=== PATIENT | male | born 1955 | race Hispanic/Latino ===

== ENCOUNTER → 2017-04-09 | Day surgery (SDC) | payer OTHER, MEDICARE ==
[~2017-04-09] MED LIST: FERROUS SULFAT325 MG PO; HYDROCHLOROTHIA25 MG PO; LIDOCAINE HCL 2% LOCAL INJ 5 ML SDV VIAL INJ ONE; MIDAZOLAM HCL 2 MG/2 ML VIAL ONE; PANTOPRAZOLE SO40 MG PO; PROPOFOL IV EMULSION 10 MG/ML 50 ML VIAL ONE; PROPRANOLOL HCL20 MG PO; TAMSULOSIN HCL0.4 MG PO; VITAMIN C500 MG PO
== END | disposition home or self-care (01) ==
LOC: OR 06:31
PROVIDERS: ATTEND Internal Medicine Gastroenterology
DX: K70.30 Alcoholic cirrhosis of liver without ascites (principal); I85.10 Secondary esophageal varices without bleeding; K31.7 Polyp of stomach and duodenum; K29.70 Gastritis, unspecified, without bleeding; K25.9 Gastric ulcer, unspecified as acute or chronic, without hemorrhage or perforation; E66.9 Obesity, unspecified; I10 Essential (primary) hypertension; Z68.35 Body mass index [BMI] 35.0-35.9, adult
CPT/HCPCS: 43251; 88305; 88312; 93005; J2001; J2250

== ENCOUNTER → 2017-05-28 | Outpatient (CLI) | payer OTHER, MEDICARE ==
[~2017-05-28] MED LIST changes: -LIDOCAINE HCL 2% LOCAL INJ 5 ML SDV VIAL INJ ONE; -MIDAZOLAM HCL 2 MG/2 ML VIAL ONE; -PROPOFOL IV EMULSION 10 MG/ML 50 ML VIAL ONE
[2017-05-28 09:33] LABS: BASOPHILS # (AUTO) 0.1 (0.0-0.1); BASOPHILS % 1.5 % (0.0-1.0); EOSINOPHILS # (AUTO) 0.2 (0.0-0.4); HEMATOCRIT 36.3 % (38.2-49.6); HEMOGLOBIN 12.4 g/dL (14.0-18.0); LYMPHOCYTES # (AUTO) 0.8 (1.0-3.2); LYMPHOCYTES % 13.4 % (18.0-39.1); MEAN CORPUSCULAR HGB CONC 34.2 g/dL (31-35); MEAN CORPUSCULAR VOLUME 102.5 fL (81-99); MONOCYTES # (AUTO) 1.2 (0.2-0.8); MONOCYTES % 19.9 % (4.4-11.3); NEUTROPHILS # (AUTO) 3.6 (2.1-6.9); NEUTROPHILS % 60.2 % (38.7-80.0); PLATELET COUNT 103 x10e3/uL (140-360); RED BLOOD COUNT 3.54 x10e6/uL (4.3-5.7)
[2017-05-28 09:43] LABS: INR 1.17
[2017-05-28 09:44] LABS: PARTIAL THROMBOPLASTIN TIME 37.4 seconds (23.8-35.5)
--- NOTE | 2017-05-28 09:52 | Diagnostic Imaging Report ---
PROCEDURE:ABDOMINAL ULTRASOUND COMPARISON:None. INDICATIONS:cirrhosis, varices FINDINGS: Liver: 15.6 cm in the right midclavicular line. Coarse hepatic echotexture with a nodular external contour in keeping with cirrhosis. Within the central liver there is a questionable hyperechoic lesion measuring 2.2 x 1.7 x 1.9 cm. Main portal vein: 1.3 cm in caliber. Hepatopetal flow. Gallbladder: Multiple small mobile shadowing calculi. No paracolic cystic fluid. The gallbladder wall is mildly thickened measuring 0.4 cm. Common Bile Duct: 0.2 cm in caliber. No echogenic filling defect. Sonographic Jones's sign: Reported as negative. Right kidney: 11.6 cm in length. Small (subcentimeter) echogenic focus in the medial aspect, without acoustic shadowing. Normal parenchymal echogenicity. Left kidney: 12.4 cm in length. No solid or cystic mass, echogenic calculi, or hydronephrosis. Normal parenchymal echogenicity. Spleen: Enlarged, measuring 16.7 cm in length. Uniform echotexture. Pancreas: The visualized portions of the pancreas are normal. Inferior vena cava: Patent. Aorta: Non-aneurysmal. Ascites: None. CONCLUSION: Cirrhosis with portal hypertension evidenced by splenomegaly. Echogenic lesion within the central aspect of the liver, along the main portal vein, is concerning for hepatocellular carcinoma in the setting of background cirrhosis. Further characterization with MRI of the abdomen with and without contrast (liver mass protocol) is suggested. Cholelithiasis with mild gallbladder wall thickening, likely attributable to underlying liver disease and/or hypoproteinemia in the absence of pericholecystic fluid or positive sonographic Jones's sign. Small shadowing echogenic focus in the right kidney may represent a small angiomyolipoma and may also be further assessed by above recommended multiphase MRI abdomen. Dictated by: Tim Burns M.D. on 05/28/2017 at 9:53 Electronically approved by: Tim Burns M.D. on 05/28/2017 at 9:53
[2017-05-28 09:53] LABS: ALANINE AMINOTRANSFERASE 72 IU/L (0-55); ALBUMIN/GLOBULIN RATIO 0.6 (0.8-2.0); ALKALINE PHOSPHATASE 133 IU/L (40-150); ANION GAP 9.9 mmol/L (8-16); BLOOD UREA NITROGEN 10 mg/dL (7-26); BUN/CREATININE RATIO 13 (6-25); CALCIUM 8.4 mg/dL (8.4-10.2); CARBON DIOXIDE 24 mmol/L (22-29); CHLORIDE 106 mmol/L (98-107); CREATININE, SERUM 0.75 mg/dL (0.72-1.25); EST GLOMERULAR FILTRATION RATE > 60 ML/MIN (60-); GLUCOSE 109 mg/dL (74-118); POTASSIUM 3.9 mmol/L (3.5-5.1); SODIUM 136 mmol/L (136-145)
== END ==
LOC: US 08:08
PROVIDERS: ATTEND Internal Medicine Gastroenterology
DX: I85.01 Esophageal varices with bleeding (principal); K70.30 Alcoholic cirrhosis of liver without ascites; E66.9 Obesity, unspecified; Z71.3 Dietary counseling and surveillance
CPT/HCPCS: 36415; 76700; 80053; 82105; 85025; 85610; 85730; 87340; 87522

== ENCOUNTER 2020-02-17 03:25 | Emergency (ER) | payer MEDICARE ==
[~2020-02-17] VITALS: Ht 157.5 cm; Wt 76.7 kg
[2020-02-17 03:52] LABS: BASOPHILS # (AUTO) 0.1 (0.0-0.1); BASOPHILS % 0.8 % (0.0-1.0); EOSINOPHILS # (AUTO) 0.1 (0.0-0.4); EOSINOPHILS % 0.9 % (0.0-6.0); HEMATOCRIT 22.1 % (38.2-49.6); HEMOGLOBIN 7.2 g/dL (14.0-18.0); LYMPHOCYTES # (AUTO) 0.8 (1.0-3.2); LYMPHOCYTES % 5.8 % (18.0-39.1); MEAN CORPUSCULAR HEMOGLOBIN 32.4 pg (28-32); MEAN CORPUSCULAR HGB CONC 32.6 g/dL (31-35); MEAN CORPUSCULAR VOLUME 99.5 fL (81-99); MONOCYTES # (AUTO) 1.1 (0.2-0.8); MONOCYTES % 8.1 % (4.4-11.3); NEUTROPHILS % 83.8 % (38.7-80.0); PLATELET COUNT 129 x10e3/uL (140-360); RED BLOOD COUNT 2.22 x10e6/uL (4.3-5.7); RED CELL DISTRIBUTION WIDTH 18.2 % (11.7-14.4)
[2020-02-17 03:54] LABS: CLARITY,URINE SL CLOUDY (CLEAR); COLOR,URINE YELLOW (YELLOW); KETONES,URINE NEGATIVE (NEGATIVE); LEUKOCYTE ESTERASE ,URINE NEGATIVE (NEGATIVE); NITRITE,URINE POSITIVE (NEGATIVE); PROTEIN,URINE DIPSTICK 1+ (NEGATIVE)
[2020-02-17 04:00] LABS: BACTERIA,URINE MODERATE /HPF; EPITHELIAL CELLS,URINE RARE /LPF
[2020-02-17 04:00] LABS: INR 1.5; PARTIAL THROMBOPLASTIN TIME 42.9 seconds (23.8-35.5); PROTHROMBIN TIME 18.8 seconds (11.9-14.5)
[2020-02-17] MEDS ORDERED: SODIUM CHLORIDE 0.9% 1000ML 1,000 ML IV STA (04:07)
[2020-02-17] MEDS ORDERED: IBUPROFEN 600 MG TAB PO STA (04:07)
[2020-02-17 04:09] LABS: ALANINE AMINOTRANSFERASE 63 IU/L (0-55); ALBUMIN/GLOBULIN RATIO 0.4 (0.8-2.0); ALKALINE PHOSPHATASE 208 IU/L (40-150); ANION GAP 12.4 mmol/L (8-16); BLOOD UREA NITROGEN 6 mg/dL (7-26); BUN/CREATININE RATIO 8 (6-25); CALCIUM 7.2 mg/dL (8.4-10.2); CARBON DIOXIDE 14 mmol/L (22-29); CHLORIDE 114 mmol/L (98-107); CREATINE KINASE 68 IU/L (30-200); CREATININE, SERUM 0.74 mg/dL (0.72-1.25); EST GLOMERULAR FILTRATION RATE > 60 ML/MIN (60-); GLUCOSE 116 mg/dL (74-118); POTASSIUM 3.4 mmol/L (3.5-5.1); SODIUM 137 mmol/L (136-145)
[2020-02-17] MEDS ORDERED: IBUPROFEN 600 MG TAB ONE (04:20)
[2020-02-17] MEDS ORDERED: CEFTRIAXONE SOD 1 GM/NS 50 ML 50 ML IV ONE (04:45)
[2020-02-17] MEDS ORDERED: BACTRIM DS TAB1 EACH PO (05:45)
== END 2020-02-17 06:49 | disposition home or self-care (01) ==
LOC: ER 03:42
DX: A41.9 Sepsis, unspecified organism (principal); N39.0 Urinary tract infection, site not specified; R50.9 Fever, unspecified; R53.81 Other malaise; I10 Essential (primary) hypertension; Z85.05 Personal history of malignant neoplasm of liver
CPT/HCPCS: 36415; 71045; 80053; 81001; 82550; 82553; 83605; 84484; 85025; 85610; 85730; 87040; 93005; 99284; J0696; J7030; U0002

== ENCOUNTER 2020-04-04 14:44 | Inpatient (IN) | payer MEDICARE ==
[~2020-04-04] VITALS: Ht 160 cm; Wt 83.6 kg
[~2020-04-04 14:44] MED LIST changes: +BACTRIM DS TAB1 EACH PO
[2020-04-04 16:18] LABS: BASOPHILS # (AUTO) 0.1 (0.0-0.1); EOSINOPHILS # (AUTO) 0.2 (0.0-0.4); EOSINOPHILS % 4.2 % (0.0-6.0); LYMPHOCYTES # (AUTO) 0.8 (1.0-3.2); LYMPHOCYTES % 15.3 % (18.0-39.1); MEAN CORPUSCULAR HEMOGLOBIN 33.2 pg (28-32); MEAN CORPUSCULAR HGB CONC 30.5 g/dL (31-35); MEAN CORPUSCULAR VOLUME 108.7 fL (81-99); MONOCYTES # (AUTO) 0.9 (0.2-0.8); MONOCYTES % 18.1 % (4.4-11.3); PLATELET COUNT 127 x10e3/uL (140-360); RED BLOOD COUNT 1.84 x10e6/uL (4.3-5.7); RED CELL DISTRIBUTION WIDTH 16.4 % (11.7-14.4)
[2020-04-04 16:29] LABS: HEMOGLOBIN 6.1 g/dL (14.0-18.0); INR 1.61; PROTHROMBIN TIME 20.3 seconds (11.9-14.5)
[2020-04-04] MEDS ORDERED: SODIUM CHLORIDE 0.9% 250ML 250 ML IV ONE (16:30)
[2020-04-04 16:34] LABS: ANION GAP 10.2 mmol/L (8-16); BLOOD UREA NITROGEN 8 mg/dL (7-26); BUN/CREATININE RATIO 11 (6-25); CALCIUM 7.5 mg/dL (8.4-10.2); CARBON DIOXIDE 18 mmol/L (22-29); CHLORIDE 113 mmol/L (98-107); CREATININE, SERUM 0.74 mg/dL (0.72-1.25); EST GLOMERULAR FILTRATION RATE > 60 ML/MIN (60-); GLUCOSE 114 mg/dL (74-118); POTASSIUM 3.2 mmol/L (3.5-5.1); SODIUM 138 mmol/L (136-145)
[2020-04-04] MEDS ORDERED: ACETAMINOPHEN 325 MG TAB PO PRN (19:00)
[2020-04-04] MEDS ORDERED: HYDRALAZINE HCL 20 MG/ML VIAL IV PRN (19:00)
[2020-04-04] MEDS ORDERED: POTASSIUM CHLORIDE 20MEQ/100ML 200 ML IV ONE (19:00)
[2020-04-04] MEDS ORDERED: ACETAMINOPHEN/CODEINE 300MG - 30MG TAB PO PRN (19:00)
[2020-04-04] MEDS ORDERED: FUROSEMIDE INJ 10 MG/ML 4 ML VIAL IV SCH (19:00)
[2020-04-04] MEDS ORDERED: ONDANSETRON HCL INJ 2MG/ML 2ML 2 MG/ML VIAL IV PRN (19:00)
[2020-04-04 19:45] VITALS: BP 152/80
[2020-04-04 20:10] VITALS: BP 152/80
[2020-04-04] MEDS ORDERED: OCTREOTIDE ACETATE 0.05 MG/ML AMP IV SCH (21:15)
[2020-04-04] MEDS ORDERED: SODIUM CHLORIDE 0.9% SQ SCH (21:15)
[2020-04-04] MEDS ORDERED: OCTREOTIDE ACETATE SQ SCH (21:15)
[2020-04-04] MEDS ORDERED: OCTREOTIDE ACETATE 500 MCG in SODIUM CHLORIDE 0.9% 250ML 250 ML IV SCH (22:30)
[2020-04-05] VITALS (8 sets, daily range): BP systolic 117–144; BP diastolic 65–83
[2020-04-05] MEDS ORDERED: SODIUM CHLORIDE 0.9% 250ML 250 ML ONE (00:56)
[2020-04-05] MEDS ORDERED: MULTIVITAMINS- 12 INJECTION 10 ML, FOLIC ACID MDV 5 MG, THIAMINE HCL INJ 100 MG in SODI... IV SCH (01:00)
[2020-04-05 01:23] LABS: ALBUMIN 1.8 g/dL (3.5-5.0); BILIRUBIN,DIRECT 3.6 mg/dL (0.0-0.5)
[2020-04-05] MEDS ORDERED: PHYTONADIONE 10 MG/ML AMP IV ONE ×2 (02:00→08:45)
[2020-04-05] MEDS ORDERED: ALIGN4 MG PO (03:57)
[2020-04-05] MEDS ORDERED: SODIUM CHLORIDE 0.9% 1000ML 1,000 ML ONE (06:58)
[2020-04-05] MEDS: POTASSIUM CHLORIDE 20MEQ/100ML 100 ML IV SCH ×2 (07:42→10:30)
[2020-04-05] MEDS ORDERED: OCTREOTIDE ACETATE 0.05 MG/ML AMP IV SCH (08:00)
[2020-04-05] MEDS: TAMSULOSIN HCL 0.4 MG CAP PO SCH (08:11)
[2020-04-05] MEDS: FERROUS SULFATE 325 MG TAB PO SCH (08:11)
[2020-04-05] MEDS: PANTOPRAZOLE SOD 40 MG TABEC PO SCH (08:11)
[2020-04-05] MEDS: PROPRANOLOL HCL 40 MG TAB PO SCH (08:11)
[2020-04-05] MEDS: SPIRONOLACTONE 25 MG TAB PO SCH ×2 (08:11→17:31)
[2020-04-05] MEDS: ASCORBIC ACID 500 MG TAB PO SCH ×2 (08:12→17:31)
[2020-04-05] MEDS ORDERED: FUROSEMIDE INJ 10 MG/ML 4 ML VIAL IV SCH ×2 (09:00)
[2020-04-05] MEDS ORDERED: PHYTONADIONE 10MG/ML 20 MG in SODIUM CHLORIDE 0.9% 50ML 50 ML IV ONE (09:10)
[2020-04-05] MEDS ORDERED: POTASSIUM CHLORIDE 20MEQ/100ML 100 ML IV ONE (10:30)
[2020-04-05] MEDS: OCTREOTIDE ACETATE 500 MCG in SODIUM CHLORIDE 0.9% 250ML 250 ML IV SCH ×3 (11:16→18:00)
[2020-04-05] MEDS: MULTIVITAMINS- 12 INJECTION 10 ML, FOLIC ACID MDV 5 MG, THIAMINE HCL INJ 100 MG in SODI... IV SCH (11:16)
[2020-04-05 13:07] LABS: BASOPHILS # (AUTO) 0.1 (0.0-0.1); BASOPHILS % 2.2 % (0.0-1.0); EOSINOPHILS # (AUTO) 0.2 (0.0-0.4); EOSINOPHILS % 4.3 % (0.0-6.0); HEMATOCRIT 30.7 % (38.2-49.6); HEMOGLOBIN 9.8 g/dL (14.0-18.0); LYMPHOCYTES # (AUTO) 0.7 (1.0-3.2); MEAN CORPUSCULAR HEMOGLOBIN 31.9 pg (28-32); MEAN CORPUSCULAR HGB CONC 31.9 g/dL (31-35); MONOCYTES # (AUTO) 0.8 (0.2-0.8); MONOCYTES % 16.3 % (4.4-11.3); NEUTROPHILS # (AUTO) 2.8 (2.1-6.9); NEUTROPHILS % 61.5 % (38.7-80.0); PLATELET COUNT 135 x10e3/uL (140-360); RED BLOOD COUNT 3.07 x10e6/uL (4.3-5.7); RED CELL DISTRIBUTION WIDTH 19.9 % (11.7-14.4)
[2020-04-05 13:29] LABS: ALANINE AMINOTRANSFERASE 46 IU/L (0-55); ALBUMIN 1.9 g/dL (3.5-5.0); ALBUMIN/GLOBULIN RATIO 0.3 (0.8-2.0); ALKALINE PHOSPHATASE 194 IU/L (40-150); ANION GAP 12.5 mmol/L (8-16); BLOOD UREA NITROGEN 8 mg/dL (7-26); BUN/CREATININE RATIO 12 (6-25); CALCIUM 7.8 mg/dL (8.4-10.2); CARBON DIOXIDE 18 mmol/L (22-29); CHLORIDE 111 mmol/L (98-107); CREATININE, SERUM 0.67 mg/dL (0.72-1.25); EST GLOMERULAR FILTRATION RATE > 60 ML/MIN (60-); GLUCOSE 127 mg/dL (74-118); POTASSIUM 3.5 mmol/L (3.5-5.1); SODIUM 138 mmol/L (136-145)
[2020-04-05 15:20] LABS: BODY FLUID APPEARANCE SL.CLOUDY; BODY FLUID COLOR YELLOW; BODY FLUID TYPE PERITONEAL
[2020-04-05 15:21] LABS: RBC,BODY FLUID 269 cells/uL; WBC,BODY FLUID 146 cells/uL
[2020-04-05 15:28] LABS: LYMPHOCYTES,BODY FLUID 49 %; MONO/MACROPHG,BODY FLUID 16 %; NEUTROPHILS,BODY FLUID 20 %; OTHER CELLS,BODY FLUID 15 %
[2020-04-05] MEDS: FUROSEMIDE INJ 10 MG/ML 4 ML VIAL IV SCH (17:31)
[2020-04-06] VITALS (8 sets, daily range): BP systolic 108–119; BP diastolic 60–72
[2020-04-06] MEDS: OCTREOTIDE ACETATE 500 MCG in SODIUM CHLORIDE 0.9% 250ML 250 ML IV SCH ×3 (04:00→21:08)
[2020-04-06] MEDS: MULTIVITAMINS- 12 INJECTION 10 ML, FOLIC ACID MDV 5 MG, THIAMINE HCL INJ 100 MG in SODI... IV SCH ×2 (04:15→20:34)
[2020-04-06 05:53] LABS: BASOPHILS # (AUTO) 0.1 (0.0-0.1); BASOPHILS % 2.4 % (0.0-1.0); EOSINOPHILS # (AUTO) 0.2 (0.0-0.4); HEMATOCRIT 25.7 % (38.2-49.6); HEMOGLOBIN 8.4 g/dL (14.0-18.0); LYMPHOCYTES # (AUTO) 0.9 (1.0-3.2); LYMPHOCYTES % 23.9 % (18.0-39.1); MEAN CORPUSCULAR HEMOGLOBIN 32.3 pg (28-32); MEAN CORPUSCULAR HGB CONC 32.7 g/dL (31-35); MEAN CORPUSCULAR VOLUME 98.8 fL (81-99); MONOCYTES # (AUTO) 0.6 (0.2-0.8); MONOCYTES % 15.2 % (4.4-11.3); NEUTROPHILS # (AUTO) 1.9 (2.1-6.9); PLATELET COUNT 104 x10e3/uL (140-360); RED CELL DISTRIBUTION WIDTH 19.2 % (11.7-14.4)
[2020-04-06 06:10] LABS: INR 1.8; PROTHROMBIN TIME 22.3 seconds (11.9-14.5)
[2020-04-06 06:11] LABS: PARTIAL THROMBOPLASTIN TIME 44.4 seconds (23.8-35.5)
[2020-04-06 06:21] LABS: ALANINE AMINOTRANSFERASE 40 IU/L (0-55); ALBUMIN 1.5 g/dL (3.5-5.0); ALBUMIN/GLOBULIN RATIO 0.3 (0.8-2.0); ALKALINE PHOSPHATASE 159 IU/L (40-150); BLOOD UREA NITROGEN 7 mg/dL (7-26); BUN/CREATININE RATIO 11 (6-25); CALCIUM 7.2 mg/dL (8.4-10.2); CARBON DIOXIDE 20 mmol/L (22-29); CHLORIDE 110 mmol/L (98-107); CREATININE, SERUM 0.63 mg/dL (0.72-1.25); EST GLOMERULAR FILTRATION RATE > 60 ML/MIN (60-); GLUCOSE 124 mg/dL (74-118); SODIUM 138 mmol/L (136-145)
[2020-04-06 06:39] LABS: % IRON SATURATION 71 % (15-50); IRON 125 ug/dL (65-175); TOTAL IRON BINDING CAPACITY 176 ug/dL (261-478); TRANSFERRIN 126 mg/dL (174-364)
[2020-04-06] MEDS: PANTOPRAZOLE SOD 40 MG TABEC PO SCH (07:30)
[2020-04-06] MEDS: SPIRONOLACTONE 25 MG TAB PO SCH ×2 (09:00→16:30)
[2020-04-06] MEDS: PROPRANOLOL HCL 40 MG TAB PO SCH (09:00)
[2020-04-06] MEDS: TAMSULOSIN HCL 0.4 MG CAP PO SCH (09:00)
[2020-04-06] MEDS: FERROUS SULFATE 325 MG TAB PO SCH (09:00)
[2020-04-06] MEDS: FUROSEMIDE INJ 10 MG/ML 4 ML VIAL IV SCH ×2 (09:00→16:23)
[2020-04-06] MEDS: ASCORBIC ACID 500 MG TAB PO SCH ×2 (09:00→16:30)
[2020-04-06] MEDS ORDERED: POTASSIUM CHLORIDE 20MEQ/100ML 300 ML IV ONE (12:15)
[2020-04-06] MEDS ORDERED: SODIUM CHLORIDE 0.9% 250ML 250 ML ONE (13:10)
[2020-04-06 13:44] LABS: CLARITY,URINE HAZY (CLEAR); COLOR,URINE YELLOW (YELLOW); KETONES,URINE NEGATIVE (NEGATIVE); LEUKOCYTE ESTERASE ,URINE NEGATIVE (NEGATIVE); NITRITE,URINE NEGATIVE (NEGATIVE); PROTEIN,URINE DIPSTICK 2+ (NEGATIVE); URINE UROBILINOGEN 4 mg/dL (0.2 - 1)
[2020-04-06 13:53] LABS: BACTERIA,URINE MANY /HPF; CALCIUM OXALATE CRYSTALS,UR RARE (FEW); EPITHELIAL CELLS,URINE FEW /LPF; RBC,URINE >50 /HPF (0-5); WBC,URINE (MAN) 0-5 /HPF (0-5)
[2020-04-06] MEDS: POTASSIUM CHLORIDE 10MEQ EA PO SCH (16:30)
[2020-04-06] MEDS ORDERED: SODIUM CHLORIDE 0.9% 500ML 500 ML ONE (16:35)
[2020-04-07] VITALS (8 sets, daily range): BP systolic 95–110; BP diastolic 56–65
[2020-04-07 06:39] LABS: BASOPHILS # (AUTO) 0.1 (0.0-0.1); BASOPHILS % 2.8 % (0.0-1.0); EOSINOPHILS # (AUTO) 0.3 (0.0-0.4); EOSINOPHILS % 5.9 % (0.0-6.0); HEMATOCRIT 26.8 % (38.2-49.6); HEMOGLOBIN 8.6 g/dL (14.0-18.0); LYMPHOCYTES % 21.5 % (18.0-39.1); MEAN CORPUSCULAR HGB CONC 32.1 g/dL (31-35); MEAN CORPUSCULAR VOLUME 99.6 fL (81-99); MONOCYTES # (AUTO) 0.6 (0.2-0.8); MONOCYTES % 12.2 % (4.4-11.3); NEUTROPHILS # (AUTO) 2.6 (2.1-6.9); NEUTROPHILS % 56.9 % (38.7-80.0); PLATELET COUNT 144 x10e3/uL (140-360); RED BLOOD COUNT 2.69 x10e6/uL (4.3-5.7); RED CELL DISTRIBUTION WIDTH 18.6 % (11.7-14.4)
[2020-04-07 07:00] LABS: CHOL/HDL RATIO 2.9 (3.9-4.7); MAGNESIUM 1.2 MG/DL (1.3-2.1); PHOSPHORUS 2.5 MG/DL (2.3-4.7)
[2020-04-07 07:13] LABS: ANION GAP 10.5 mmol/L (8-16); BLOOD UREA NITROGEN 8 mg/dL (7-26); BUN/CREATININE RATIO 12 (6-25); CALCIUM 7.1 mg/dL (8.4-10.2); CARBON DIOXIDE 21 mmol/L (22-29); CHLORIDE 109 mmol/L (98-107); CREATININE, SERUM 0.69 mg/dL (0.72-1.25); EST GLOMERULAR FILTRATION RATE > 60 ML/MIN (60-); GLUCOSE 89 mg/dL (74-118); POTASSIUM 3.5 mmol/L (3.5-5.1); SODIUM 137 mmol/L (136-145)
[2020-04-07 07:33] LABS: THYROID STIMULATING HORMONE 0.235 uIU/mL (0.350-4.940)
[2020-04-07] MEDS ORDERED: SODIUM CHLORIDE 0.9% 250ML 0 ML ONE (08:28)
[2020-04-07] MEDS: PANTOPRAZOLE SOD 40 MG TABEC PO SCH (08:46)
[2020-04-07] MEDS: FUROSEMIDE INJ 10 MG/ML 4 ML VIAL IV SCH ×2 (08:46→17:09)
[2020-04-07] MEDS: SPIRONOLACTONE 25 MG TAB PO SCH ×2 (08:47→17:09)
[2020-04-07] MEDS: PROPRANOLOL HCL 40 MG TAB PO SCH (08:47)
[2020-04-07] MEDS: TAMSULOSIN HCL 0.4 MG CAP PO SCH (08:47)
[2020-04-07] MEDS: FERROUS SULFATE 325 MG TAB PO SCH (08:47)
[2020-04-07] MEDS: ASCORBIC ACID 500 MG TAB PO SCH ×2 (08:48→17:09)
[2020-04-07 09:20] LABS: FERRITIN 99.91 ng/mL (21.81-274.66)
[2020-04-07] MEDS: POTASSIUM CHLORIDE 10MEQ EA PO SCH (09:36)
[2020-04-07] MEDS ORDERED: MAGNESIUM SULFATE 2GM/50ML 50 ML IV ONE ×5 (10:30→15:00)
[2020-04-07] MEDS: IRON SUCROSE 100 MG in SODIUM CHLORIDE 0.9% 100 ML 100 ML IV SCH (10:38)
[2020-04-07] MEDS: OCTREOTIDE ACETATE 500 MCG in SODIUM CHLORIDE 0.9% 250ML 250 ML IV SCH ×2 (11:48→20:00)
[2020-04-08] VITALS (7 sets, daily range): BP systolic 103–149; BP diastolic 55–81
[2020-04-08] MEDS: MULTIVITAMINS- 12 INJECTION 10 ML, FOLIC ACID MDV 5 MG, THIAMINE HCL INJ 100 MG in SODI... IV SCH ×2 (01:45→16:55)
[2020-04-08] MEDS: OCTREOTIDE ACETATE 500 MCG in SODIUM CHLORIDE 0.9% 250ML 250 ML IV SCH ×2 (06:00→13:24)
[2020-04-08 06:28] LABS: BASOPHILS # (AUTO) 0.2 (0.0-0.1); BASOPHILS % 3.1 % (0.0-1.0); EOSINOPHILS # (AUTO) 0.3 (0.0-0.4); EOSINOPHILS % 5.3 % (0.0-6.0); HEMATOCRIT 26.2 % (38.2-49.6); HEMOGLOBIN 8.4 g/dL (14.0-18.0); LYMPHOCYTES # (AUTO) 1.2 (1.0-3.2); LYMPHOCYTES % 23.3 % (18.0-39.1); MEAN CORPUSCULAR HEMOGLOBIN 31.5 pg (28-32); MEAN CORPUSCULAR HGB CONC 32.1 g/dL (31-35); MEAN CORPUSCULAR VOLUME 98.1 fL (81-99); MONOCYTES # (AUTO) 0.7 (0.2-0.8); MONOCYTES % 12.6 % (4.4-11.3); NEUTROPHILS # (AUTO) 2.9 (2.1-6.9); NEUTROPHILS % 55.3 % (38.7-80.0); PLATELET COUNT 144 x10e3/uL (140-360); RED BLOOD COUNT 2.67 x10e6/uL (4.3-5.7); RED CELL DISTRIBUTION WIDTH 18.3 % (11.7-14.4)
[2020-04-08 07:03] LABS: ALANINE AMINOTRANSFERASE 39 IU/L (0-55); ALBUMIN 1.6 g/dL (3.5-5.0); ALBUMIN/GLOBULIN RATIO 0.3 (0.8-2.0); ALKALINE PHOSPHATASE 168 IU/L (40-150); ANION GAP 8.5 mmol/L (8-16); CALCIUM 7.1 mg/dL (8.4-10.2); CARBON DIOXIDE 24 mmol/L (22-29); CHLORIDE 110 mmol/L (98-107); MAGNESIUM 1.7 MG/DL (1.3-2.1); POTASSIUM 3.5 mmol/L (3.5-5.1); SODIUM 139 mmol/L (136-145)
[2020-04-08 07:39] LABS: BLOOD UREA NITROGEN 7 mg/dL (7-26); BUN/CREATININE RATIO 10 (6-25); CREATININE, SERUM 0.69 mg/dL (0.72-1.25); EST GLOMERULAR FILTRATION RATE > 60 ML/MIN (60-); GLUCOSE 102 mg/dL (74-118)
[2020-04-08] MEDS: TAMSULOSIN HCL 0.4 MG CAP PO SCH (08:28)
[2020-04-08] MEDS: FERROUS SULFATE 325 MG TAB PO SCH (08:28)
[2020-04-08] MEDS: SPIRONOLACTONE 25 MG TAB PO SCH ×2 (08:28→16:41)
[2020-04-08] MEDS: FUROSEMIDE INJ 10 MG/ML 4 ML VIAL IV SCH ×2 (08:28→16:41)
[2020-04-08] MEDS: PANTOPRAZOLE SOD 40 MG TABEC PO SCH (08:28)
[2020-04-08] MEDS: PROPRANOLOL HCL 40 MG TAB PO SCH (08:29)
[2020-04-08] MEDS: POTASSIUM CHLORIDE 10MEQ EA PO SCH (08:29)
[2020-04-08] MEDS: ASCORBIC ACID 500 MG TAB PO SCH ×2 (08:29→16:41)
[2020-04-08 09:14] LABS: EOSINOPHILS % (MANUAL) 4 % (0-7); LYMPHOCYTES % (MANUAL) 21 % (19-48); MONOCYTES % (MANUAL) 11 % (3.4-9.0); NEUTROPHILS % (MANUAL) 62 % (40-74)
[2020-04-08] MEDS: IRON SUCROSE 100 MG in SODIUM CHLORIDE 0.9% 100 ML 100 ML IV SCH (09:47)
[2020-04-08] MEDS ORDERED: CALCIUM GLUCONATE 10% INJ 13.95 MEQ in SODIUM CHLORIDE 0.9% 100 ML 100 ML IV ONE (13:00)
[2020-04-08] MEDS ORDERED: SODIUM CHLORIDE 0.9% 250ML 250 ML ONE (13:13)
[2020-04-08] MEDS ORDERED: LACTULOSE SYRUP 20 GM/30 ML UDC PO ONE ×3 (20:00→23:45)
[2020-04-08] MEDS ORDERED: RIFAXIMIN 550 MG TABLET PO STA (22:27)
[2020-04-08] MEDS ORDERED: PHYTONADIONE 10 MG/ML AMP IV ONE (23:15)
[2020-04-08] MEDS ORDERED: SODIUM CHLORIDE 0.9% 50ML 50 ML ONE (23:52)
[2020-04-09 00:42] VITALS: BP 133/82
[2020-04-09] MEDS: LORAZEPAM 0.5 MG TAB PO PRN (03:55)
[2020-04-09 05:00] VITALS: BP 147/71
[2020-04-09 05:52] LABS: BASOPHILS # (AUTO) 0.2 (0.0-0.1); BASOPHILS % 2.4 % (0.0-1.0); EOSINOPHILS # (AUTO) 0.2 (0.0-0.4); EOSINOPHILS % 3.3 % (0.0-6.0); HEMATOCRIT 29.3 % (38.2-49.6); HEMOGLOBIN 9.3 g/dL (14.0-18.0); LYMPHOCYTES # (AUTO) 1.2 (1.0-3.2); LYMPHOCYTES % 17.7 % (18.0-39.1); MEAN CORPUSCULAR HEMOGLOBIN 31.8 pg (28-32); MEAN CORPUSCULAR HGB CONC 31.7 g/dL (31-35); MEAN CORPUSCULAR VOLUME 100.3 fL (81-99); MONOCYTES % 14.4 % (4.4-11.3); NEUTROPHILS # (AUTO) 4.1 (2.1-6.9); NEUTROPHILS % 61.9 % (38.7-80.0); PLATELET COUNT 153 x10e3/uL (140-360); RED BLOOD COUNT 2.92 x10e6/uL (4.3-5.7); RED CELL DISTRIBUTION WIDTH 18.2 % (11.7-14.4)
[2020-04-09 06:27] LABS: ALANINE AMINOTRANSFERASE 41 IU/L (0-55); ALBUMIN 1.8 g/dL (3.5-5.0); ALBUMIN/GLOBULIN RATIO 0.3 (0.8-2.0); ALKALINE PHOSPHATASE 168 IU/L (40-150); ANION GAP 11.5 mmol/L (8-16); BLOOD UREA NITROGEN 10 mg/dL (7-26); BUN/CREATININE RATIO 12 (6-25); CALCIUM 7.8 mg/dL (8.4-10.2); CARBON DIOXIDE 24 mmol/L (22-29); CHLORIDE 109 mmol/L (98-107); CREATININE, SERUM 0.81 mg/dL (0.72-1.25); EST GLOMERULAR FILTRATION RATE > 60 ML/MIN (60-); GLUCOSE 136 mg/dL (74-118); POTASSIUM 3.5 mmol/L (3.5-5.1); SODIUM 141 mmol/L (136-145)
[2020-04-09 07:45] VITALS: BP 139/76
[2020-04-09] MEDS: PANTOPRAZOLE SOD 40 MG TABEC PO SCH (08:00)
[2020-04-09] MEDS: SPIRONOLACTONE 25 MG TAB PO SCH ×2 (09:43→17:24)
[2020-04-09] MEDS: FERROUS SULFATE 325 MG TAB PO SCH (09:43)
[2020-04-09] MEDS: TAMSULOSIN HCL 0.4 MG CAP PO SCH (09:43)
[2020-04-09] MEDS: FUROSEMIDE INJ 10 MG/ML 4 ML VIAL IV SCH ×2 (09:43→17:24)
[2020-04-09] MEDS: LACTULOSE SYRUP 20 GM/30 ML UDC PO SCH ×2 (09:44→17:24)
[2020-04-09] MEDS: POTASSIUM CHLORIDE 10MEQ EA PO SCH (09:44)
[2020-04-09] MEDS: PROPRANOLOL HCL 40 MG TAB PO SCH (09:44)
[2020-04-09] MEDS: RIFAXIMIN 550 MG TABLET PO SCH ×2 (09:44→17:24)
[2020-04-09] MEDS: ASCORBIC ACID 500 MG TAB PO SCH ×2 (09:44→17:24)
[2020-04-09] MEDS: IRON SUCROSE 100 MG in SODIUM CHLORIDE 0.9% 100 ML 100 ML IV SCH (10:20)
[2020-04-09] MEDS: MULTIVITAMINS- 12 INJECTION 10 ML, FOLIC ACID MDV 5 MG, THIAMINE HCL INJ 100 MG in SODI... IV SCH (13:15)
[2020-04-09 16:30] VITALS: BP 139/77
[2020-04-09 20:59] VITALS: BP 127/71
[2020-04-09 21:00] VITALS: BP 127/71
[2020-04-10] VITALS (8 sets, daily range): BP systolic 101–136; BP diastolic 59–89
[2020-04-10 05:39] LABS: BASOPHILS # (AUTO) 0.2 (0.0-0.1); BASOPHILS % 2.6 % (0.0-1.0); EOSINOPHILS # (AUTO) 0.4 (0.0-0.4); EOSINOPHILS % 6.1 % (0.0-6.0); HEMATOCRIT 29.2 % (38.2-49.6); HEMOGLOBIN 9.4 g/dL (14.0-18.0); LYMPHOCYTES # (AUTO) 1.1 (1.0-3.2); LYMPHOCYTES % 18.7 % (18.0-39.1); MEAN CORPUSCULAR HEMOGLOBIN 32.3 pg (28-32); MEAN CORPUSCULAR HGB CONC 32.2 g/dL (31-35); MEAN CORPUSCULAR VOLUME 100.3 fL (81-99); MONOCYTES # (AUTO) 0.7 (0.2-0.8); MONOCYTES % 12.1 % (4.4-11.3); NEUTROPHILS # (AUTO) 3.7 (2.1-6.9); NEUTROPHILS % 59.8 % (38.7-80.0); PLATELET COUNT 135 x10e3/uL (140-360); RED BLOOD COUNT 2.91 x10e6/uL (4.3-5.7); RED CELL DISTRIBUTION WIDTH 18.1 % (11.7-14.4)
[2020-04-10 06:01] LABS: ALANINE AMINOTRANSFERASE 39 IU/L (0-55); ALBUMIN 1.8 g/dL (3.5-5.0); ALBUMIN/GLOBULIN RATIO 0.4 (0.8-2.0); ALKALINE PHOSPHATASE 150 IU/L (40-150); ANION GAP 11.2 mmol/L (8-16); BLOOD UREA NITROGEN 11 mg/dL (7-26); BUN/CREATININE RATIO 14 (6-25); CALCIUM 7.8 mg/dL (8.4-10.2); CARBON DIOXIDE 23 mmol/L (22-29); CHLORIDE 109 mmol/L (98-107); EST GLOMERULAR FILTRATION RATE > 60 ML/MIN (60-); GLUCOSE 119 mg/dL (74-118); POTASSIUM 3.2 mmol/L (3.5-5.1); SODIUM 140 mmol/L (136-145)
[2020-04-10 06:31] LABS: MAGNESIUM 1.4 MG/DL (1.3-2.1); PHOSPHORUS 2.9 MG/DL (2.3-4.7)
[2020-04-10] MEDS ORDERED: MAGNESIUM SULF 1GRAM/DEXTROSE 100 ML IV ONE (07:30)
[2020-04-10] MEDS: PANTOPRAZOLE SOD 40 MG TABEC PO SCH (07:30)
[2020-04-10] MEDS ORDERED: MAGNESIUM SULFATE 2GM/50ML 50 ML IV ONE (08:30)
[2020-04-10] MEDS ORDERED: LACTULOSE SYRUP 20 GM/30 ML UDC PO PRN (09:00)
[2020-04-10] MEDS: TAMSULOSIN HCL 0.4 MG CAP PO SCH (09:07)
[2020-04-10] MEDS: ASCORBIC ACID 500 MG TAB PO SCH ×2 (09:07→17:24)
[2020-04-10] MEDS: FUROSEMIDE INJ 10 MG/ML 4 ML VIAL IV SCH ×2 (09:07→17:24)
[2020-04-10] MEDS: RIFAXIMIN 550 MG TABLET PO SCH ×2 (09:07→17:24)
[2020-04-10] MEDS: SPIRONOLACTONE 25 MG TAB PO SCH ×2 (09:07→17:24)
[2020-04-10] MEDS: FERROUS SULFATE 325 MG TAB PO SCH (09:07)
[2020-04-10] MEDS: PROPRANOLOL HCL 40 MG TAB PO SCH (09:08)
[2020-04-10] MEDS: MULTIVITAMINS- 12 INJECTION 10 ML, FOLIC ACID MDV 5 MG, THIAMINE HCL INJ 100 MG in SODI... IV SCH (09:30)
[2020-04-10] MEDS: IRON SUCROSE 100 MG in SODIUM CHLORIDE 0.9% 100 ML 100 ML IV SCH (11:00)
[2020-04-10] MEDS ORDERED: POTASSIUM CHLORIDE 20 MEQ TAB CR PO ONE (12:00)
[2020-04-10] MEDS: POTASSIUM CHLORIDE 10MEQ EA PO SCH (12:39)
[2020-04-10] MEDS: LORAZEPAM 0.5 MG TAB PO PRN (23:09)
[2020-04-11 01:00] VITALS: BP 109/65
[2020-04-11 05:36] VITALS: BP 109/65
[2020-04-11 06:21] LABS: BASOPHILS # (AUTO) 0.1 (0.0-0.1); BASOPHILS % 2.6 % (0.0-1.0); EOSINOPHILS # (AUTO) 0.2 (0.0-0.4); EOSINOPHILS % 3.9 % (0.0-6.0); HEMATOCRIT 26.2 % (38.2-49.6); HEMOGLOBIN 8.4 g/dL (14.0-18.0); LYMPHOCYTES # (AUTO) 0.9 (1.0-3.2); LYMPHOCYTES % 24.4 % (18.0-39.1); MEAN CORPUSCULAR HEMOGLOBIN 32.2 pg (28-32); MEAN CORPUSCULAR HGB CONC 32.1 g/dL (31-35); MEAN CORPUSCULAR VOLUME 100.4 fL (81-99); MONOCYTES # (AUTO) 0.5 (0.2-0.8); MONOCYTES % 13.7 % (4.4-11.3); NEUTROPHILS # (AUTO) 2.1 (2.1-6.9); NEUTROPHILS % 55.1 % (38.7-80.0); PLATELET COUNT 100 x10e3/uL (140-360); RED BLOOD COUNT 2.61 x10e6/uL (4.3-5.7); RED CELL DISTRIBUTION WIDTH 18.1 % (11.7-14.4)
[2020-04-11 06:35] LABS: INR 1.92; PROTHROMBIN TIME 23.5 seconds (11.9-14.5)
[2020-04-11 06:36] LABS: PARTIAL THROMBOPLASTIN TIME 50.2 seconds (23.8-35.5)
[2020-04-11 06:46] LABS: ALANINE AMINOTRANSFERASE 35 IU/L (0-55); ALBUMIN 1.6 g/dL (3.5-5.0); ALBUMIN/GLOBULIN RATIO 0.3 (0.8-2.0); ALKALINE PHOSPHATASE 139 IU/L (40-150); ANION GAP 7.5 mmol/L (8-16); BLOOD UREA NITROGEN 12 mg/dL (7-26); BUN/CREATININE RATIO 18 (6-25); CALCIUM 7.4 mg/dL (8.4-10.2); CARBON DIOXIDE 25 mmol/L (22-29); CHLORIDE 108 mmol/L (98-107); CREATININE, SERUM 0.67 mg/dL (0.72-1.25); EST GLOMERULAR FILTRATION RATE > 60 ML/MIN (60-); GLUCOSE 89 mg/dL (74-118); POTASSIUM 3.5 mmol/L (3.5-5.1); SODIUM 137 mmol/L (136-145)
[2020-04-11 07:46] VITALS: BP 109/65
[2020-04-11 08:20] VITALS: BP 109/67
[2020-04-11] MEDS ORDERED: MAGNESIUM SULF 1GRAM/DEXTROSE 100 ML IV ONE (08:30)
[2020-04-11] MEDS ORDERED: MAGNESIUM SULFATE 2GM/50ML 50 ML IV ONE (09:30)
[2020-04-11] MEDS: PANTOPRAZOLE SOD 40 MG TABEC PO SCH (09:33)
[2020-04-11] MEDS: MULTIVITAMINS- 12 INJECTION 10 ML, FOLIC ACID MDV 5 MG, THIAMINE HCL INJ 100 MG in SODI... IV SCH (09:33)
[2020-04-11] MEDS: FUROSEMIDE INJ 10 MG/ML 4 ML VIAL IV SCH (09:33)
[2020-04-11] MEDS: FERROUS SULFATE 325 MG TAB PO SCH (09:34)
[2020-04-11] MEDS: SPIRONOLACTONE 25 MG TAB PO SCH (09:34)
[2020-04-11] MEDS: TAMSULOSIN HCL 0.4 MG CAP PO SCH (09:34)
[2020-04-11] MEDS: PROPRANOLOL HCL 40 MG TAB PO SCH (09:35)
[2020-04-11] MEDS: ASCORBIC ACID 500 MG TAB PO SCH (09:35)
[2020-04-11] MEDS: POTASSIUM CHLORIDE 10MEQ EA PO SCH (09:35)
[2020-04-11] MEDS: RIFAXIMIN 550 MG TABLET PO SCH (09:35)
[2020-04-11] MEDS ORDERED: ACETAMINOPHEN325 M1 PO (09:45)
[2020-04-11] MEDS ORDERED: LASIX40 MG PO (09:45)
[2020-04-11] MEDS ORDERED: XIFAXAN550 MG PO (09:45)
[2020-04-11] MEDS ORDERED: POTASSIUM CHLO20 ME1 PO (09:45)
[2020-04-11] MEDS ORDERED: LACTULOSE20 GM/30 M PO (09:45)
[2020-04-11] MEDS ORDERED: ALDACTONE25 MG PO (09:45)
[2020-04-11 11:55] VITALS: BP 113/68
[2020-04-11] MEDS ORDERED: POTASSIUM CHLORIDE 20 MEQ TAB CR PO ONE (12:00)
[2020-04-11] MEDS: IRON SUCROSE 100 MG in SODIUM CHLORIDE 0.9% 100 ML 100 ML IV SCH (13:15)
== END 2020-04-11 15:45 | disposition home or self-care (01) | DRG 435 ==
LOC: ER 15:42 → ERHOLD 16:37 → MED/SURG3 20:10
PROVIDERS: ADMIT Internal Medicine; ATTEND Internal Medicine
PROC: 0W9G3ZX Drainage of Peritoneal Cavity, Percutaneous Approach, Diagnostic (ICD-10-PCS; principal; 2020-04-05)
PROC: 30233N1 Transfusion of Nonautologous Red Blood Cells into Peripheral Vein, Percutaneous Approach (ICD-10-PCS; 2020-04-05)
PROC: 0D568ZZ Destruction of Stomach, Via Natural or Artificial Opening Endoscopic (ICD-10-PCS; 2020-04-06)
DX: C22.9 Malignant neoplasm of liver, not specified as primary or secondary (principal); K31.811 Angiodysplasia of stomach and duodenum with bleeding; D68.4 Acquired coagulation factor deficiency; I85.10 Secondary esophageal varices without bleeding; K70.31 Alcoholic cirrhosis of liver with ascites; D63.8 Anemia in other chronic diseases classified elsewhere; E66.9 Obesity, unspecified; Z68.32 Body mass index [BMI] 32.0-32.9, adult; E83.42 Hypomagnesemia; E87.6 Hypokalemia; K44.9 Diaphragmatic hernia without obstruction or gangrene; D50.9 Iron deficiency anemia, unspecified; I10 Essential (primary) hypertension; K72.90 Hepatic failure, unspecified without coma
CPT/HCPCS: 36415; 43255; 49083; 76705; 80048; 80053; 80061; 80076; 81001; 82105; 82140; 82270; 82607; 82728; 82746; 82948; 83036; 83540; 83735; 83880; 84100; 84443; 84466; 85025; 85045; 85610; 85730; 86850; 86900; 86920; 87070; 87205; 88112; 88305; 89051; 93005; 93306; 93970; 99251; 99284; C1729; J0610; J1756; J1940; J2353; J2405; J3411; J3430; J3475; J3480; J7030; J7040; J7050; P9016; U0002